=== PATIENT | female | born 1955 | race Caucasian/White ===

== ENCOUNTER → 2020-09-30 15:13 | Outpatient (BNVA) | payer OTHER, SELFPAY | PROVIDERS: PCP Family Medicine; Visit Provider Nurse Practitioner Family | DX: R35.0 Frequency of micturition (principal); R10.2 Pelvic and perineal pain | CPT/HCPCS: 81003; 87086 ==

== ENCOUNTER 2020-10-30 09:22 | Outpatient (CLI) | payer OTHER, SELFPAY ==
--- NOTE | 2020-10-30 09:30 | NM_ITS ---
WS: [id number] NUCLEAR MEDICINE GASTRIC STUDY CLINICAL INFORMATION: R10.13 - Epigastric pain TECHNIQUE: Following oral ingestion of cooked egg mixed with 1.0 mCi technetium 99m sulfur colloid, a nterior images of the stomach were obtained over the course of 90 minutes. Activity curve was perform ed over the course of 90 minutes with linear regression analysis. COMPARISON: None. FINDINGS: T 1/2 (min) 245 minutes Only 22% emptying at 120 minutes. Only 4% emptying at 60 minutes. NM/[place] [address] IMPRESSION: Delayed gastric emptying with only 22% emptying at 2 hours. *Normal median T1 half 90 minutes for solid egg meal (45-110 minutes). Delayed gastric retention is defined as 90% retained at 1 hour, 60% at 2 hour s, 30% at 3 hours, and 10% at 4 hours (normal percent gastric retention is 37-9 0% at 1 hour, 30-60% at 2 hours, and 0-10% at 4 hours).
== END 2020-10-30 09:23 | disposition home or self-care (01) ==
LOC: NM 09:25
PROVIDERS: PCP Family Medicine; Visit Provider Internal Medicine
DX: R10.13 Epigastric pain (principal)
CPT/HCPCS: 78264; 81003; A9541

== ENCOUNTER → 2020-11-03 11:17 | Outpatient (BNVA) | payer OTHER, SELFPAY | PROVIDERS: PCP Family Medicine; Visit Provider Internal Medicine | DX: K31.84 Gastroparesis (principal); Z01.812 Encounter for preprocedural laboratory examination | CPT/HCPCS: 87635 ==

== ENCOUNTER 2020-11-06 08:23 | Day surgery (SDC) | payer OTHER, SELFPAY ==
--- NOTE | 2020-11-06 08:38 | ANES.PREANE2 ---
Pre-Anesthetic Assessment Pre-Anesthetic Assessment: Height/Weight: Height 1.68 m Weight 52.163 kg Preop Diagnosis: gastroparesis Proposed Procedure: Operation Date: 11/06/20 09:30 Proposed Procedures p EGD 31402 K31.84(Not Applicable) - Du Padilla MD Familial anesthetic complications: None Was Beta Albina taken within 24 hours: N/A Was Clonidine taken within 24 hours: N/A Last intake: NPO > 8 hrs Social: Social History: No alcohol and No tobacco Exam: Pre-Anes Outpt Exam: alert, oriented x 3, clear to auscultation bilaterally and regular rate & rhythm Airway: Cervical ROM: WNL MP: 1 Dentition: Full GI: GI: GERD Anesthetic Plan: ASA status: 2 Anesthesia: MAC Risk of > 500 ml blood loss (7ml/kg in children): No PFSH Anesthesia PFSH: Medical History Pelvic pressure in female Urinary frequency Family History Mother Cancer Heart disease Father Heart disease Social History Smoking and tobacco status: never smoked Second hand smoke exposure: No Alcohol intake: former Marital status: History of recent travel: No Current gender identity: Female Data Anesthesia Cardiac Studies: No Data to Display
--- NOTE | 2020-11-06 08:49 | P.HP_ITS ---
Same Day Surgery H&P Indication for Procedure/HPI DATE OF PROCEDURE: November 06, 2020 CHIEF COMPLAINT/INDICATIONFOR SURGICAL PROCEDURE: Gastroparesis versus gastric outlet obstruction on a gastric emptying study. PREOP DIAGNOSIS: gastroparesis PLANNED PROCEDRUE: Operation Date: 11/06/20 09:30 Proposed Procedures p EGD 38028 K31.84(Not Applicable) - Du Padilla MD Medications/Allergies* Allergies/Adverse Reactions Allergy/AdvReac Type Severity Reaction Status Date / Time No Known Allergies Allergy Verified 11/03/20 10:47 Pertinent History/Comorbid Conditions* Medical History (Updated 11/03/20 @ 11:11 by Du Padilla MD) Pelvic pressure in female Urinary frequency Family History (Updated 12/10/19 @ 10:13 by NICOLE Roa) Heart disease Mother Father Cancer Mother Social History Smoking and tobacco status: never smoked Second hand smoke exposure: No Alcohol intake: former Marital status: History of recent travel: No Current gender identity: Female Pertinent Exam Findings alert, oriented x 3, clear to auscultation bilaterally, regular rate & rhythm and procedure specific exam findings Recommendations Surgery/Procedure today Coding Level of Care Code Acute Retail Marketing Manager for Aram Hicks
[2020-11-06 09:04] VITALS: BP 165/82; PULSE 78; RESP 18; TEMP 36.2; O2SAT 100
[2020-11-06] MEDS: sodium chloride 0.9% 1,000 ML 30 ML IV (09:12)
[2020-11-06 09:48] VITALS: BP 121/71; PULSE 69; RESP 12; TEMP 36.6; O2SAT 99
--- NOTE | 2020-11-06 09:48 | ANE.PACU2 ---
Inpatient post-anesthesia follow up: Airway intact: Yes Vital signs: Temperature 97.1 F Pulse Rate 78 Respiratory Rate 18 Blood Pressure 165/82 Pulse Oximetry 100 Oxygen Delivery Me thod Room Air Oxygen Flow Rate Fraction of Inspir ed Oxygen Hydration adequate: Yes Nausea and vomiting: No Pain level: 1 Mental status: Baseline
[2020-11-06 10:05] VITALS: BP 136/77; PULSE 59; RESP 16; O2SAT 100
[2020-11-09 05:55] LABS: H. Pylori / CLO Test Negative
== END 2020-11-06 10:20 | disposition home or self-care (01) ==
PROVIDERS: PCP Family Medicine; Visit Provider Internal Medicine
PROC: 0DJ08ZZ Inspection of Upper Intestinal Tract, Via Natural or Artificial Opening Endoscopic (ICD-10-PCS; CPT 43235; principal; 2020-11-06 09:30)
DX: K31.84 Gastroparesis (principal); K29.70 Gastritis, unspecified, without bleeding
CPT/HCPCS: 43239; 87077; 96360; J2704; J7030

== ENCOUNTER 2021-05-21 11:04 | Emergency (ER) | payer OTHER, SELFPAY ==
[2021-05-21 11:15] VITALS: BP 174/84; PULSE 73; RESP 18; TEMP 36.8; O2SAT 96; BMI 20.8
--- NOTE | 2021-05-21 11:27 | W.ED.ABDPA2 ---
HPI - Abdominal Pain General: Chief Complaint: Abdominal Pain Stated Complaint: Abdominal Pain Time Seen by Provider: 05/21/21 11:16 History of Present Illness: HPI narrative: Ms. Nicolas is a 66-year-old lady with significant past medical history of gastroparesis who presents to the emergency department due to abdominal discomfort. She has a longstanding history of abdominal symptoms however the past month or 2 she has had increased lower abdominal pressure. She does not attribute this to any sort of activity or any specific timing. At times it is moderate to severe in intensity and at times very mild. She has had urinalysis performed which shows bacteria however no convincing urinary tract infection and no organisms identified as pathological on cultures per patient report. She does endorse mild changes in bowel habits though over a long time line she does have variations in bowel movements. Most recently it has been diarrhea. Overall the course of symptoms has been mildly worsening. No other signs of systemic illness, patient specifically denies epigastric and chest pain, no other specific exacerbating or alleviating factors identified. Review of Systems General: Reports: 10 or more systems reviewed and unremarkable except in HPI and below PFSH ED PFSH: Medical History Pelvic pressure in female Urinary frequency Family History Mother Cancer Heart disease Father Heart disease Social History Smoking and tobacco status: never smoked Second hand smoke exposure: No Alcohol intake: former Marital status: History of recent travel: No Current gender identity: Female Physical Exam Narrative: EXAM NARRATIVE: GENERAL/CONSTITUTIONAL -mildly ill-appearing. No acute distress. Eyes -no scleral icterus, no conjunctival injection ENMT - Atraumatic external nose and ears. Moist mucous membranes NECK - supple. trachea midline CARDIOVASCULAR - regular rate and rhythm. RESPIRATORY -clear to auscultation bilaterally. ABDOMEN/GI -generalized tenderness palpation worse in the lower abdomen. No tenderness to percussion or evidence of peritonitis MSK - Extremities without obvious deformity or tenderness to palpation SKIN - Warm, Dry NEURO - alert and appropriately oriented. Moves all extremities equally. PSYCH -somewhat anxious. Course ED course: - Patient was seen and evaluated by me at bedside - Patient placed on cardiac monitors, IV access obtained - Initial evaluation notable for exam as noted above. Nontoxic. -Symptom treatment ordered - Labs notable for no leukocytosis. Elevated hemoglobin with mild macrocytosis. No significant metabolic abnormalities. Urinalysis not concerning for urinary tract infection. - Imaging notable for minimal thickening of the right colon hepatic flexure. Moderate constipation. No other acute finding to explain patient's symptoms. Lung nodules with repeat CT scan in 12 months discussed. - Upon serial reexamination after treatment the patient was improved - Based on patient history, evaluation, labs, and imaging as interpreted the most likely cause of the patient's condition is abdominal pain which may be secondary to mild colitis in the context of gastroparesis - The results of ED evaluation were discussed with the patient including prescriptions and/or symptomatic cares (if applicable) including appropriate and responsible use, followup plan, and return precautions. The patient verbalized understanding and felt safe for discharge. - Patient discharged in satisfactory condition. Vital Signs: Vital signs: Vital Signs Temperature 98.2 F 05/21/21 11:15 Pulse Rate 78 05/21/21 14:04 Respiratory Rate 18 05/21/21 14:04 Blood Pressure 156/80 05/21/21 14:04 Pulse Oximetry 96 05/21/21 11:15 MDM - Abdominal Pain Medical Records: Attestation: I reviewed the patient's medical records. Lab Data: Attestation: I reviewed the patient's lab results. Labs: Lab Results 05/21/21 05/21/21 05/21/21 11:43 11:55 11:55 WBC 6.7 10^3/uL 10^3/ uL (4.0-10.0) RBC 4.75 10^6/uL 10^6 /uL (4.1-5.3) Hgb 16.3 g/dL H g/dL (11.5-15.3) Hct 47.7 % H % (37.0-47.0) MCV 100.4 fl H fl (81-99) MCH 34.3 pg H pg (28.0-34.0) MCHC 34.2 g/dL g/dL (30.0-36.0) RDW 11.6 % L % (12.1-15.1) Plt Count 199 10^3/cmm 10^3 /cmm (130-400) MPV 11.9 fL H fL (7.4-10.4) Neut % (Auto) 65.9 % % Lymph % (Auto) 27.1 % % [place] % (Auto) 6.0 % % Eos % (Auto) 0.3 % % Baso % (Auto) 0.6 % % Neut # (Auto) 4.43 10^3/uL 10^3 /uL (1.8-7.7) Lymph # (Auto) 1.8 10^3/uL 10^3/ uL (0.8-4.8) [place] # (Auto) 0.4 10^3/uL 10^3/ uL (0.2-0.9) Eos # (Auto) 0.0 10^3/uL 10^3/ uL (0.0-0.8) Baso # (Auto) 0.0 10^3/uL 10^3/ uL (0.0-0.1) Nucleated RBC % (a uto) 0 % % Nucleated RBCs # 0.0 /100WBC /100W BC Sodium 140 mmol/L mmol/L (136-145) Potassium 3.9 mmol/L mmol/L (3.5-5.1) Chloride 102 mmol/L mmol/L (98-107) Carbon Dioxide 26 mmol/L mmol/L (22-29) Anion Gap 15.9 (5-19) BUN 5 mg/dL L mg/dL (8-23) Creatinine 0.6 mg/dL mg/dL (0.5-0.9) GFR Calculation 100.6 mL/min mL/m in (90-130) Glucose 89 mg/dL mg/dL (65-115) Calculated Osmolal ity 287 mOsm/kg mOsm/ kg (285-295) Calcium 9.4 mg/dL mg/dL (8.5-10.5) Total Bilirubin 0.7 mg/dL mg/dL (0.15-1.2) AST 20 U/L U/L (0-32) ALT 9 U/L U/L (0-33) Alkaline Phosphata se 108 IU/L H IU/L (35-105) Total Protein 7.4 g/dL g/dL (6.6-8.7) Albumin 4.6 g/dL g/dL (3.5-5.2) Globulin 2.8 g/dL g/dL (1.3-4.6) Lipase 40 U/L U/L (13-60) Urine Color Yellow (Yellow) Urine Appearance Clear (CLEAR) Urine pH 8 H (5-7) Ur Specific Gravit y 1.010 (1.005-1.030) Urine Protein Neg (Negative) Urine Glucose (UA) Norm (Normal) Urine Ketones 1+ H (Negative) Urine Blood Neg (Negative) Urine Nitrate Negative (Negative) Urine Bilirubin Neg (Negative) Urine Urobilinogen Norm mg/dL mg/dL (Negative) Ur Leukocyte Lida ase Negative (Negative) Discharge Plan Discharge Patient Disposition: Home Clinical Impression: Abdominal pain, Colitis Condition: Stable Prescriptions: New Augmentin 875-125 mg tablet 1 tab PO BID Qty: 14 RF: 0 No Action omeprazole 40 mg capsule,delayed release(DR/EC) 40 mg PO DAILY Qty: 90 RF: 3 metoclopramide HCl [Reglan] 10 mg tablet 10 mg PO TID Qty: 90 RF: 4 chlordiazepoxide-clidinium 5-2.5 mg capsule 1 cap PO BID PRN (Reason: stomach ulcer) RF: 0 doxycycline hyclate 100 mg tablet 100 mg PO BID MDD see pharmacy comment RF: 0 Discharge Orders: Discharge ED (Routine); Ordered 05/21/21 Ordered By: Otis Haley Referrals: Marino Bejarano, [Primary Care Provider] - Discharge Diet: Advance as tolerated and Clear Liquid Discharge Activity: Resume usual activity Patient Instructions: Abdominal Pain (ED), Colitis (ED) Activity Restrictions/Additional Instructions: Thank you for visiting the emergency department. You were seen and evaluated for abdominal discomfort. The exact cause of your symptoms is unclear, you have a small area of the colon which appears mildly inflamed or infected. This will be treated with antibiotics. Please continue follow-up with your primary care provider. Please return to the emergency department for uncontrolled pain, worsening symptoms, inability to tolerate oral intake, or anything else that you are concerned about and feel needs emergency department evaluation. Coding Level of Care Code ED Polisher Numeral for Aram Hicks
--- NOTE | 2021-05-21 11:41 | CT_ITS ---
WS: [id number] CT ABDOMEN PELVIS TECHNIQUE: Contrast-enhanced CT of the abdomen and pelvis with coronal and sagittal reformatted image s. CLINICAL INFORMATION: abdominal pain worse lower, change in bowel habits COMPARISON: CT 5 DLP: 915.[address] scans at [facility] use at least one of these dose optimization techniques: automated e xposure control; mA and/or kV adjustment per patient size (includes targeted exams where dose is matc hed to clinical indication); or iterative reconstruction. FINDINGS: Lung bases are well aerated. Noncalcified nodule in the right middle lobe measuring 4 mm. Noncalcifie d right lower lobe subpleural nodule measuring 5 mm. Additional 2 or 3 tiny subpleural nodules right lower lobe laterally. Tiny nodule left lower lobe. Diffuse fatty infiltration of the liver. Normal portal vein and splenic vein. Prior cholecystectomy. Normal spleen. Normal GE junction. Adrenal glands are normal. Normal renal parenchymal enhancement. N o hydronephrosis. Tiny left renal cyst. Normal caliber abdominal aorta. Urine distended bladder. Small amount of fluid in the cul-de-sac. No abdominal or pelvic lymphadenopathy. No inguinal lymphadenopathy. Calcified uterine fibroid. No evidence of high-grade small or obstruction. Subtle equivocal thickening and induration involving the right hepatic flexure and transverse colon can be seen with mild infectious or inflammatory colit is. Moderate sigmoid constipation. No other significant findings. CT/CT abdomen pelvis w con* [id number] IMPRESSION: 1. Subtle thickening of the right colon hepatic flexure and transverse colon w ith slight induration suspicious for mild infectious or inflammatory colitis. R ecommend correlation for infection. 2. Moderate sigmoid constipation. Sigmoid colon otherwise appears normal. 3. Small amount of free fluid in the cul-de-sac. 4. Diffuse fatty infiltration of the liver. 5. Prior cholecystectomy. 6. Small calcified uterine fibroid. 7. A few tiny subpleural nodules in the lung bases and right middle lobe. Phillip mmend 12 month follow-up chest CT.
[2021-05-21 12:02] LABS: Basophils % 0.6 %; Eosinophils % 0.3 %; Hematocrit 47.7 % (37.0-47.0); Hemoglobin 16.3 g/dL (11.5-15.3); Lymphocytes # 1.8 10^3/uL (0.8-4.8); Lymphocytes % 27.1 %; Mean Corpuscular HGB Conc 34.2 g/dL (30.0-36.0); Mean Corpuscular Hemoglobin 34.3 pg (28.0-34.0); Mean Corpuscular Volume 100.4 fl (81-99); Mean Platelet Volume 11.9 fL (7.4-10.4); Monocytes # 0.4 10^3/uL (0.2-0.9); Neutrophils # 4.43 10^3/uL (1.8-7.7); Neutrophils % 65.9 %; Nucleated Red Blood Cells % 0 %; Platelet Count 199 10^3/cmm (130-400); Red Blood Count 4.75 10^6/uL (4.1-5.3); Red Cell Distribution Width 11.6 % (12.1-15.1); White Blood Count 6.7 10^3/uL (4.0-10.0)
[2021-05-21 12:23] LABS: Alanine Aminotransferase 9 U/L (0-33); Albumin Level 4.6 g/dL (3.5-5.2); Alkaline Phosphatase 108 IU/L (35-105); Anion Gap 15.9 (5-19); Aspartate Amino Transferase 20 U/L (0-32); Blood Urea Nitrogen 5 mg/dL (8-23); Calcium 9.4 mg/dL (8.5-10.5); Carbon Dioxide 26 mmol/L (22-29); Chloride 102 mmol/L (98-107); Globulin 2.8 g/dL (1.3-4.6); Glomerular Filtration Rate 100.6 mL/min (90-130); Glucose 89 mg/dL (65-115); Lipase 40 U/L (13-60); Osmolality Calculated 287 mOsm/kg (285-295); Potassium 3.9 mmol/L (3.5-5.1); Sodium 140 mmol/L (136-145); Total Bilirubin 0.7 mg/dL (0.15-1.2); Total Protein 7.4 g/dL (6.6-8.7)
[2021-05-21 12:36] LABS: Add Urine Microscopic? NO; Charge for UA Resulting for Rev
[2021-05-21 12:40] LABS: Bilirubin Urine Neg (Negative); Blood Urine Neg (Negative); Glucose Urine UA Norm (Normal); Ketones Urine 1+ (Negative); Leukocyte Esterase Urine Negative (Negative); Nitrate Urine Negative (Negative); Protein Urine Neg (Negative); Urine Appearance Clear (CLEAR); Urine Color Yellow (Yellow); Urobilinogen Urine Norm (Negative); pH Urine 8 (5-7)
[2021-05-21] MEDS: iohexol 300 mg/mL 100 mL Btl IV (12:41)
[2021-05-21] MEDS: sodium chloride 0.9% 1,000 ML 999 ML IV (12:50)
[2021-05-21 14:04] VITALS: BP 156/80; PULSE 78; RESP 18
== END 2021-05-21 14:05 | disposition home or self-care (01) ==
PROVIDERS: Emergency Provider Emergency Medicine; PCP Family Medicine
DX: K52.9 Noninfective gastroenteritis and colitis, unspecified (principal)
CPT/HCPCS: 74177; 80053; 81003; 83690; 85025; 96360; 99283; J7030; Q9967

== ENCOUNTER 2021-12-14 06:00 | Outpatient (RCR) | payer MEDICAID, SELFPAY | END 2022-01-06 23:59 | disposition home or self-care (01) | LOC: MPT 06:00 | PROVIDERS: PCP Family Medicine; Referring Provider Family Medicine; Visit Provider Family Medicine | DX: M54.50 Low back pain, unspecified (principal) | CPT/HCPCS: 97110; 97161; G0283 ==

== ENCOUNTER 2022-11-16 13:21 | Outpatient (CLI) | payer MEDICARE, MEDICAID, SELFPAY ==
--- NOTE | 2022-11-16 13:24 | MR_ITS ---
WS: [id number] MRI SACRUM without CONTRAST. COMPARISON: None Multiplanar, multisequence imaging is performed without contrast. No marrow edema within the sacrum. No evidence for sacral insufficiency fracture. No fusion or erosio ns of any significance along the SI joints. SI joints are symmetric. Again noted is the mild anterior wedging of L5 by 30% with edema suggesting a subacute fracture invol ving the superior anterior endplate. No retropulsion. Normal appearance of the urinary bladder. Uterus is anteverted. No adenopathy or free fluid. MR/MR sacrum wo con* [id number] IMPRESSION: 1. Normal sacrum. No sacral insufficiency fracture or edema. 2. L5 30% anterior compression fracture, suspect subacute.
--- NOTE | 2022-11-16 13:25 | MR_ITS ---
WS: [id number] MRI LUMBAR SPINE NONCONTRAST HISTORY: LUMBAGO WITH SCIATICA, UNSPECIFIED SIDE Right-sided pain. COMPARISON: None available. TECHNIQUE: Sagittal and axial multisequence imaging is submitted. Moderate increase in thoracic kyphosis. T6 hemangioma. Normal posterior lumbar alignment. Anterior wedging of L5 by 30%. There is a very small amount of mar row edema along the superior endplate. Fracture was not present on a prior study of 05/21/2021. Disc spaces and vertebral body heights are well-preserved. Conus terminates normally at L1. L1-L2: Normal. L2-L3: Normal. L3-L4: Very mild annular disc bulging with mild narrowing of the subarticular recesses. Mild ligament um flavum and facet arthritis. There is very mild encroachment upon the traversing L4 nerve roots. L4-L5: Mild annular disc bulge with a RIGHT foraminal disc protrusion. Mild disc encroachment upon th e subarticular recesses contacting the traversing L5 nerve roots. There is very minimal contact on th e exiting RIGHT L4 nerve root.. Moderate facet joint arthritis. L5-S1: Mild annular disc bulging. No stenosis. There is edema and acute facet joint inflammatory changes at L4-5. Edema in the articular facets and within the facet joints. MR/MR lumbar spine wo con* [id number] IMPRESSION: 1. L5 anterior wedging, 30% compression fracture. Mild endplate edema along th e superior anterior endplate. Fracture not present in 2020. 2. Annular disc bulging at L4-5 with a RIGHT foraminal disc protrusion. Mild e ncroachment upon the subarticular recesses bilaterally and the RIGHT L4 nerve r oot. 3. Moderate facet joint arthritis at L4-5. 4. Mild subarticular recess encroachment at L3-4. Mild encroachment upon the L 4 nerve roots. 5. Acute synovitis and facet joint disease bilaterally at L4-5.
== END 2022-11-16 13:22 | disposition home or self-care (01) ==
PROVIDERS: PCP Family Medicine; Visit Provider Family Medicine
DX: S32.050A Wedge compression fracture of fifth lumbar vertebra, initial encounter for closed fracture (principal); M51.36 Other intervertebral disc degeneration, lumbar region; M47.816 Spondylosis without myelopathy or radiculopathy, lumbar region; M65.9 Synovitis and tenosynovitis, unspecified; M54.40 Lumbago with sciatica, unspecified side; X58.XXXA Exposure to other specified factors, initial encounter; Y93.9 Activity, unspecified; Y92.9 Unspecified place or not applicable
CPT/HCPCS: 72148